=== PATIENT | female | born 1970 ===

== ENCOUNTER → 2018-02-15 | Outpatient (CLI) | payer OTHER | LOC: EDBD → WCC 08:16 | PROVIDERS: ATTEND Plastic Surgery | DX: S81.801A Unspecified open wound, right lower leg, initial encounter (principal); I10 Essential (primary) hypertension; W01.198A Fall on same level from slipping, tripping and stumbling with subsequent striking against other object, initial encounter ==

== ENCOUNTER → 2018-02-22 | Outpatient (CLI) | payer OTHER ==
[~2018-02-22] MED LIST: LIDOCAINE VISC 2% SOLN 15 ML UDC ONE
== END ==
LOC: WCC 12:16
PROVIDERS: ATTEND Plastic Surgery
DX: S81.801A Unspecified open wound, right lower leg, initial encounter (principal); I10 Essential (primary) hypertension; W01.198A Fall on same level from slipping, tripping and stumbling with subsequent striking against other object, initial encounter

== ENCOUNTER → 2018-03-01 | Outpatient (CLI) | payer OTHER | LOC: WCC 08:35 | PROVIDERS: ATTEND Plastic Surgery | DX: S81.801A Unspecified open wound, right lower leg, initial encounter (principal); I10 Essential (primary) hypertension; W01.198A Fall on same level from slipping, tripping and stumbling with subsequent striking against other object, initial encounter ==

== ENCOUNTER → 2018-03-15 | Outpatient (CLI) | payer OTHER | LOC: WCC 10:24 | PROVIDERS: ATTEND Plastic Surgery | DX: S81.801A Unspecified open wound, right lower leg, initial encounter (principal); W01.198A Fall on same level from slipping, tripping and stumbling with subsequent striking against other object, initial encounter; I10 Essential (primary) hypertension ==